=== PATIENT | female | born 1935 | race Caucasian/White ===

== ENCOUNTER 2016-08-03 12:03 | Emergency (ER) | payer MEDICARE, BC ==
[2016-08-03 12:33] VITALS: BP 140/64
--- NOTE | 2016-08-03 12:54 | EDM.PDOC ---
ED HPI GENERAL MEDICAL PROBLEM - General Chief Complaint: Laceration Stated Complaint: FALL Time Seen by Provider: 08/03/16 12:38 Source of Information: Reports: Patient, Family History Limitations: Reports: No Limitations - History of Present Illness INITIAL COMMENTS - FREE TEXT/NARRATIVE: Patient seen in room 7. She is accompanied here by her . She fell at home. She is complete recall of the event. She injured her right eyebrow. She has a laceration which requires suturing. She has a superficial abrasion of the right hand which we treated with first- aid care. Shows a history of renal carcinoma and has had surgical removal of a kidney. She is allergic to penicillin. Onset: Today Duration: Minutes: Location: Reports: Face, Upper Extremity, Right Quality: Reports: Ache Severity: Mild Improves with: Reports: None Worsens with: Reports: None Context: Reports: Trauma Associated Symptoms: Reports: No Other Symptoms - Related Data Allergies Allergy/AdvReac Type Severity Reaction Status Date / Time aspirin Allergy Other Verified 08/03/16 12:42 Penicillins AdvReac Unknown Unknown Verified 08/03/16 12:42 Home Meds: Home Meds Albuterol Sulfate [Proair Hfa] 2 puff IH 6XDAY PRN 02/06/16 [History] Triamterene/Hydrochlorothiazid [Triamterene-HCTZ 37.5-25 MG] 1 tab PO DAILY [History] Valsartan [Diovan] 80 mg PO DAILY 02/06/16 [History] Calcium Carb/Vit D3/Minerals [Hm Calcium 600 mg-Vit D Tab] 1 each PO DAILY 02/20 [History] Multivitamin with Minerals [Multiple Vitamin] 1 tab PO DAILY 02/21/16 [History] Past Medical History HEENT History: Reports: Impaired Vision, Macular Degeneration Cardiovascular History: Reports: High Cholesterol, Hypertension Respiratory History: Reports: Other (See Below) Other Respiratory History: coughing and congestion Genitourinary History: Reports: Other (See Below) Other Genitourinary History: kidney cancer and removal Musculoskeletal History: Reports: Arthritis Oncologic (Cancer) History: Reports: Other (See Below) Other Oncologic History: kidney cancer - Past Surgical History Female Surgical History: Reports: Nephrectomy Musculoskeletal Surgical History: Reports: Hip Replacement, Knee Replacement, Other (See Below) Other Musculoskeletal Surgeries/Procedures:: pelvic fracture Social & Family History - Tobacco Use Smoking Status *Q: Never Smoker - Recreational Drug Use Recreational Drug Use: No ED ROS GENERAL - Review of Systems Review Of Systems: See Below Constitutional: Reports: No Symptoms HEENT: Reports: No Symptoms Respiratory: Reports: No Symptoms Cardiovascular: Reports: No Symptoms Endocrine: Reports: No Symptoms GI/Abdominal: Reports: No Symptoms : Reports: No Symptoms, Other (1 kidney removed due to cancer) Musculoskeletal: Reports: Muscle Pain Skin: Reports: Bruising, Wound Neurological: Reports: No Symptoms Psychiatric: Reports: No Symptoms ED EXAM, SKIN/RASH Exam: See Below Exam Limited By: No Limitations General Appearance: Alert, WD/WN, Mild Distress Eye Exam: Bilateral Eye: Normal Inspection Ears: Normal External Exam, Hearing Grossly Normal Nose: Normal Inspection Throat/Mouth: Normal Inspection, Normal Voice Head: Normocephalic, Facial Swelling, Facial Tenderness Neck: Normal Inspection, Supple Respiratory/Chest: No Respiratory Distress Cardiovascular: Normal Peripheral Pulses GI/Abdominal: Soft Back Exam: Normal Inspection Extremities: Normal Inspection (Minor abrasion dorsum of the right hand) Neurological: Alert, Oriented, Normal Cognition Psychiatric: Normal Affect, Normal Mood Skin: Warm, Dry, Normal Color ED SKIN PROCEDURES - Laceration/Wound Repair Right Face Lac/wound length in cm: 3 Appearance: Stellate, Irregular, Clean Distal NVT: neuro & vascular intact, no tendon injury Anesthetic Type: local Local anesthesia - Lidocaine (Xylocaine): 1% plain Local anesthetic volume: 2cc Skin prep: chlorhexidine (hibiciens), saline Exploration/Debridement/Repair: wound explored, no foreign material found Closed with: sutures Suture size: other (5-0 Ethilon) # of sutures: 6 Drain placement: No Sterile dressing applied: nurse Tetanus status addressed: Yes Complications: No Course - Vital Signs Last Recorded V/S: Last Vital Signs Temp 99.2 F 08/03/16 12:52 Pulse 82 08/03/16 12:52 Resp 17 08/03/16 12:52 BP 140/64 08/03/16 12:52 Pulse Ox 95 08/03/16 12:52 - Orders/Labs/Meds Orders: Active Orders 24 hr Category Date Time Status Procedure Tray at Bedside [RC] ASDIRECTED Care 08/03/16 12:54 Ordered Vaccines to be Administered [RC] PER UNIT ROUTINE Care 08/03/16 13:17 Ordered Meds: Medications Discontinued Medications Generic Name Dose Route Start Last Admin Trade Name Santino PRN Reason Stop Dose Admin Bacitracin Confirm 08/03/16 12:57 Bacitracin Oint 1 Gm Administered 08/03/16 12:58 Dose 1 dose .ROUTE .STK-MED ONE Diphtheria/Tetanus/Acell Pertussis 0.5 ml 08/03/16 13:17 Adacel IM 08/03/16 13:18 .ONCE ONE Lidocaine HCl 5 ml 08/03/16 12:54 Xylocaine-Mpf 1% INJECT 08/03/16 12:55 ONETIME ONE Departure - Departure Time of Disposition: 13:18 Disposition: Home, Self-Care 01 Condition: good Clinical Impression: Facial laceration - Discharge Information Forms: ED Department Discharge Additional Instructions: Patient seen in the emergency room with injuries to the right side of the face. She has a stellate lacerations involving the right eyebrow and eyelid. The wound her primary closure. The wound her stellate and irregular in presentation. One percent lidocaine used to infiltrate the wound for anesthesia. The wounds were cleansed with Hibiclens and saline. Minor debridement was done with the scissors. 5-0 Ethilon sutures were used to approximate the wound edges and close the space and obtain hemostasis. The patient received tetanus update. The right hand abrasions treated with bacitracin and Band-Aid. Sutures can be removed after 5 days. Keep the wound covered with bacitracin or Aquaphor. Reevaluation is indicated if signs of infection present. - Problem List & Annotations (1) Facial laceration SNOMED Code(s): 312413484 Code(s): S01.81XA - LACERATION W/O FOREIGN BODY OF OTH PART OF HEAD, INIT ENCNTR Status: Acute Priority: Medium Current Visit: Yes Qualifiers: Encounter type: initial encounter Qualified Code(s): S01.81XA - Laceration without foreign body of other part of head, initial encounter - Problem List Review Problem List Initiated/Reviewed/Updated: Yes - My Orders Last 24 Hours: My Active Orders 08/03/16 12:54 Procedure Tray at Bedside [RC] ASDIRECTED 08/03/16 13:17 Vaccines to be Administered [RC] PER UNIT ROUTINE - Assessment/Plan Last 24 Hours: My Active Orders 08/03/16 12:54 Procedure Tray at Bedside [RC] ASDIRECTED 08/03/16 13:17 Vaccines to be Administered [RC] PER UNIT ROUTINE
[2016-08-03] MEDS ORDERED: Bacitracin Oint 1 GM U/D Packet ONE (12:57)
[2016-08-03] MEDS ORDERED: Diphtheria,Pertussis(Acell),Tetanus Vaccine 0.5 ML SDV IM ONE (13:17)
== END 2016-08-03 13:55 | disposition home or self-care (01) ==
LOC: JP.ED 12:03
DX: S01.112A Laceration without foreign body of left eyelid and periocular area, initial encounter (principal); I10 Essential (primary) hypertension; Z85.528 Personal history of other malignant neoplasm of kidney; Z90.5 Acquired absence of kidney; Z96.659 Presence of unspecified artificial knee joint; Z96.649 Presence of unspecified artificial hip joint; Z79.899 Other long term (current) drug therapy; Z88.0 Allergy status to penicillin; Z88.8 Allergy status to other drugs, medicaments and biological substances; W19.XXXA Unspecified fall, initial encounter; Y92.009 Unspecified place in unspecified non-institutional (private) residence as the place of occurrence of the external cause
CPT/HCPCS: 12013; 90471; 90715; 99283; 99283-25

== ENCOUNTER → 2018-07-22 | Outpatient (CLI) | payer MEDICARE, BC | END | disposition home or self-care (01) | LOC: JP.DI 10:49 | PROVIDERS: ATTEND Physician Assistant | DX: I51.7 Cardiomegaly (principal); I51.9 Heart disease, unspecified; I34.0 Nonrheumatic mitral (valve) insufficiency | CPT/HCPCS: 93306 ==

== ENCOUNTER 2019-08-19 05:59 | Day surgery (SDC) | payer MEDICARE, BC ==
[2019-08-19] MEDS ORDERED: Sodium Chloride 0.9% 10 ML Syringe FLUSH PRN (06:30)
[2019-08-19 07:51] VITALS: BP 113/57; PULSE 56
--- NOTE | 2019-08-19 10:45 | OR ---
DATE OF PROCEDURE: 08/19/2019 SURGEON: Vanessa Fong MD POSTOPERATIVE CARE: Postoperative care will be provided mainly at the [address] [place] [address] [facility] in conjunction with [facility]. PREOPERATIVE DIAGNOSIS: Cataract, right eye. POSTOPERATIVE DIAGNOSIS: Cataract, right eye. PROCEDURE: Phacoemulsification with intraocular lens placement, right eye. ANESTHESIA: Topical and intracameral. ESTIMATED BLOOD LOSS: Minimal. COMPLICATIONS: None. PATHOLOGY SPECIMENS: None. SURGICAL FINDINGS: None. INDICATION FOR PROCEDURE: The patient is an 84-year-old female with history of a visually significant cataract in the right eye, which interfered with activities of daily living. This consisted of a nuclear sclerosis cataract. Following careful discussion of the risks, benefits and alternatives to cataract extraction with intraocular lens placement including blindness and , the patient elected to proceed, and informed, written consent was obtained prior to the procedure. DESCRIPTION OF THE PROCEDURE: The patient was previously identified, and a christa placed above the right eye. All sources, including the patient, indicated that the right eye was the correct eye. The patient was subsequently taken to the operating room where standard monitors were applied. The patient was then prepped and draped in the usual sterile fashion for ophthalmic surgery. Attention was first directed at the 12 o'clock position where a paracentesis port was fashioned. Shugar solution followed by Viscoat was instilled into the eye. Attention was then directed to the 8:30 position where a triplanar incision was made in a near-clear manner using a keratome. A continuous capsulorrhexis was then made using a combination of the cystotome and Utrata forceps. Hydrodissection was achieved using a balanced salt solution, and the lens rotated nicely. Phacoemulsification was then done using a modified [id number] technique without complication. Phaco time was 5.82 CDE. The remaining cortex was removed using the irrigation/aspiration handpiece. Provisc was then instilled into the eye. A Technis lens, model [id number], at 18.5 diopters was then placed in the capsular bag using an Marvell injector. The remaining viscoelastic was removed using the irrigation/aspiration forceps. All wounds were then checked and found to be watertight. The lid speculum and drapes were removed. Maxitrol ointment was placed in the patient's right eye, and the eye was shielded. The patient tolerated the procedure well. The patient was instructed to follow up tomorrow. All needle and sponge counts were correct at the end of the procedure. Vanessa Fong MD /[id number]
== END 2019-08-19 08:05 | disposition home or self-care (01) ==
LOC: JP.SDS 05:59
PROVIDERS: ATTEND Ophthalmology
DX: H26.9 Unspecified cataract (principal); J45.909 Unspecified asthma, uncomplicated; I10 Essential (primary) hypertension; Z88.0 Allergy status to penicillin; Z88.6 Allergy status to analgesic agent
CPT/HCPCS: 66984; V2632

== ENCOUNTER 2019-09-30 06:57 | Day surgery (SDC) | payer MEDICARE, BC ==
[2019-09-30] MEDS ORDERED: Sodium Chloride 0.9% 10 ML Syringe FLUSH SCH (07:30)
[2019-09-30 09:55] VITALS: BP 137/85; PULSE 69
--- NOTE | 2019-09-30 12:27 | OR ---
DATE OF PROCEDURE: 09/30/2019 SURGEON: Vanessa Fong MD POSTOPERATIVE CARE: Postoperative care will be provided mainly at the [address] [place] [address] [facility] in conjunction with [facility]. PREOPERATIVE DIAGNOSIS: Cataract, left eye. POSTOPERATIVE DIAGNOSIS: Cataract, left eye. PROCEDURE: Phacoemulsification with intraocular lens placement, left eye. ANESTHESIA: Topical and intracameral. ESTIMATED BLOOD LOSS: Minimal. COMPLICATIONS: None. PATHOLOGY SPECIMENS: None. SURGICAL FINDINGS: None. INDICATION FOR PROCEDURE: The patient is an 84-year-old female with history of a visually significant cataract in the left eye, which interfered with activities of daily living. This consisted of a nuclear sclerosis cataract. Following careful discussion of the risks, benefits and alternatives to cataract extraction with intraocular lens placement including blindness and , the patient elected to proceed, and informed, written consent was obtained prior to the procedure. DESCRIPTION OF THE PROCEDURE: The patient was previously identified, and a christa placed above the left eye. All sources, including the patient, indicated that the left eye was the correct eye. The patient was subsequently taken to the operating room where standard monitors were applied. The patient was then prepped and draped in the usual sterile fashion for ophthalmic surgery. Attention was first directed at the 12 o'clock position where a paracentesis port was fashioned. Shugar solution followed by Viscoat was instilled into the eye. Attention was then directed to the 8:30 position where a triplanar incision was made in a near-clear manner using a keratome. A continuous capsulorrhexis was then made using a combination of the cystotome and Utrata forceps. Hydrodissection was achieved using a balanced salt solution, and the lens rotated nicely. Phacoemulsification was then done using a modified [id number] technique without complication. Phaco time was 4.81 CDE. The remaining cortex was removed using the irrigation/aspiration handpiece. Provisc was then instilled into the eye. A Technis lens, model [id number], at 18.0 diopters was then placed in the capsular bag using an Sonoita injector. The remaining viscoelastic was removed using the irrigation/aspiration forceps. All wounds were then checked and found to be watertight. The lid speculum and drapes were removed. Maxitrol ointment was placed in the patient's left eye, and the eye was shielded. The patient tolerated the procedure well. The patient was instructed to follow up tomorrow. All needle and sponge counts were correct at the end of the procedure. Vanessa Fong MD /[id number]
== END 2019-09-30 09:55 | disposition home or self-care (01) ==
LOC: JP.SDS 06:57
PROVIDERS: ATTEND Ophthalmology
DX: H25.12 Age-related nuclear cataract, left eye (principal); Z88.0 Allergy status to penicillin; Z88.6 Allergy status to analgesic agent
CPT/HCPCS: 66984; V2632

== ENCOUNTER 2020-05-29 07:33 | Day surgery (SDC) | payer MEDICARE, BC ==
[~2020-05-29 07:33] MED LIST: Bacitracin Oint 1 GM U/D Packet ONE; Lidocaine 1% with EPINEPHrine 1:100,000 50 ML MDV ONE; Midazolam 1 MG/ML 2 ML SDV ONE; Propofol 200 MG/20 ML SDV ONE; fentaNYL 100 MCG/2 ML SDV ONE
[2020-05-29] MEDS ORDERED: Sodium Chloride 0.9% 1,000 ML IV SCH (08:30)
[2020-05-29] MEDS ORDERED: ceFAZolin 2 GM in Premix Bag 1 BAG IV ONE (08:45)
[2020-05-29] MEDS ORDERED: Dexamethasone 4 MG/ML SDV ONE (08:54)
[2020-05-29] MEDS ORDERED: Ondansetron 4 MG/2 ML SDV ONE (08:54)
[2020-05-29] MEDS ORDERED: Propofol 200 MG/20 ML SDV ONE (09:23)
--- NOTE | 2020-05-29 11:13 | OR ---
DATE OF PROCEDURE: 05/29/2020 SURGEON: Cesar Vincent MD PROCEDURE: Bilateral temporal artery biopsies. COMPLICATIONS: None. PLATE MAKER: None. PREOPERATIVE DIAGNOSIS: Concern for giant cell arteritis. POSTOPERATIVE DIAGNOSIS: Concern for giant cell arteritis. RISKS: Risks, benefits, alternatives, and limitations including but not limited to infection, bleeding, chronic wounds, chronic pain, false positives and false negatives were explained to the patient and she wished to proceed. PROCEDURE IN DETAIL: The patient was placed in a supine position. The right temporal artery was identified first. This branch was identified using the ultrasound probe. This was then anesthetized and an anterior to posterior incision was made. This was 1 cm in size. This was carried down to the artery which was identified and suture ligated. This was transected and sent to pathology. The wound was closed with 3-0 Vicryl and 4-0 Vicryl in an interrupted running fashion. Dermabond was applied. The other side was then performed in a same manner, same fashion, same technique in the same sequence using the same equipment. The patient tolerated the procedure well. Wounds were closed with Dermabond. Cesar Vincent MD /[id number]
[2020-05-29 12:20] VITALS: BP 114/62; PULSE 62
== END 2020-05-29 11:25 | disposition home or self-care (01) ==
LOC: JP.SDS 07:33
PROVIDERS: ATTEND Surgery
DX: Z03.89 Encounter for observation for other suspected diseases and conditions ruled out (principal); I77.89 Other specified disorders of arteries and arterioles; I10 Essential (primary) hypertension; E78.00 Pure hypercholesterolemia, unspecified; Z88.0 Allergy status to penicillin; Z88.8 Allergy status to other drugs, medicaments and biological substances
CPT/HCPCS: 88305; 88313; 88342; J0690; J1100; J2250; J2405; J2704; J3010; J7030

== ENCOUNTER 2023-06-28 22:24 | Emergency (ER) | payer MEDICARE, BC ==
[2023-06-28 23:17] VITALS: BP 171/81; PULSE 75
[2023-06-28] MEDS: HYDROmorphone 1 MG/ML Syringe IM ONE (23:48)
== END 2023-06-29 01:36 | disposition home or self-care (01) ==
LOC: JP.ED 22:24
DX: M54.6 Pain in thoracic spine (principal); E78.00 Pure hypercholesterolemia, unspecified; I10 Essential (primary) hypertension; E66.9 Obesity, unspecified; Z88.0 Allergy status to penicillin; Z88.6 Allergy status to analgesic agent; Z79.899 Other long term (current) drug therapy; Z68.31 Body mass index [BMI] 31.0-31.9, adult
CPT/HCPCS: 71250; 96372; 99283; J1170